=== PATIENT | female | born 1945 | race Caucasian/White ===

== ENCOUNTER → 2017-07-04 | Day surgery (SDC) | payer MEDICARE ==
--- NOTE | 2017-07-01 12:51 | Diagnostic Imaging Report ---
PROCEDURE:CHEST 2 VIEWS TECHNIQUE:PA and lateral INDICATION:Preoperative evaluation for foot surgery COMPARISON:None. FINDINGS: The lungs are clear and symmetrically inflated. No pleural effusions. 0.7 cm right midlung pulmonary nodule. No pleural effusions. Normal heart size. Abdominal aortic atherosclerosis. CONCLUSION: 1. No acute abnormality. 2. 0.7 cm right midlung noncalcified pulmonary nodule. Consider low dose nodule CT chest for screening. Dictated by: Eddie Trimble M.D. on 07/01/2017 at 12:53 Electronically approved by: Eddie Trimble M.D. on 07/01/2017 at 12:53
[~2017-07-04] MED LIST: AMLODIPINE BESY10 MG PO; ARYTHROMYCIN; ASPIRIN ENTERI325 MG PO; B COMPLEX WITH1 EACH PO; BUPIVACAINE HCL 0.5% INJ 30 ML VIAL INJ ONE; CALCIUM 600 +1 EAC8 PO; CEFAZOLIN SOD 2 GM/D5W 50ML 50 ML IV ONE; DEXAMETHASONE SOD PHOS INJ 4 MG/ML VIAL ONE; FENTANYL CITRATE/PF 100MCG/2 ML INJ ONE; FOSAMAX70 MG PO; LIDOCAINE HCL 2% LOCAL INJ 5 ML SDV VIAL INJ ONE; LIPITOR10 MG PO; LISINOPRIL10 MG PO; LORATADINE10 MG PO; METHIMAZOLE10 MG PO; METOPROLOL TART50 MG PO; MULTIVITAMINS1 EAC7 PO; NEOSTIGMINE 1 MG/ML 10ML VIAL ONE; ONDANSETRON HCL INJ 2 MG/ML VIAL ONE; PROPOFOL IV EMULSION 10 MG/ML 20 ML VIAL ONE; SEVOFLURANE INHAL SOLN 250 ML PEN BTL ONE; VITAMIN C500 MG PO; VITAMIN D35000 UNI1 PO
--- OUTSIDE RECORDS SUMMARY | 2017-07-04 05:24 | XMS REPORT ---
Author Author [facility] Address Unknown Phone Unavailable Care Team Providers Care Machine Rigger Name Role Phone MAIKOL LOPEZ Unavailable Unavailable Problems This patient has no known problems. Allergies, Adverse Reactions, Alerts This patient has no known allergies or adverse reactions. Medications This patient has no known medications. Results Test Description Test Time Test Comments Text Results Atomic Results Result Comments CHEST 2 VIEWS [place] [address] Patient Name: AMA TRUJILLO MR #: [id number] : 1945 Age/Sex: 72/F Req # : [id number] Adm Physician: Ordered by: MAIKOL LOPEZ DPM Report #: [id number] Location: OR Room/Bed: Procedure: [id number] DX/CHEST 2 VIEWS Exam Date: 07/01/17 Exam Time: 1220 REPORT STATUS: Signed PROCEDURE: CHEST 2 VIEWS TECHNIQUE: PA and lateral INDICATION: Preoperative evaluation for foot surgery COMPARISON: None. FINDINGS: The lungs are clear and symmetrically inflated. No pleural effusions. 0.7 cm right midlung pulmonary nodule. No pleural effusions. Normal heart size. Abdominal aortic atherosclerosis. CONCLUSION: 1. No acute abnormality. 2. 0.7 cm right midlung noncalcified pulmonary nodule. Consider low dose nodule CT chest for screening. Dictated by: Elvis Trimble M.D. on 07/01/2017 at 12:53 Electronically approved by: Elvis Trimble M.D. on 07/01/2017 at 12:53 Dictated By: ELVIS TRIMBLE MD 1253 Transcribed By: TJ on 1253 COPY TO: MAIKOL LOPEZ DPM
[2017-07-04 06:45] LABS: BASOPHILS # (AUTO) 0.1 (0.0-0.1); BASOPHILS % 0.7 % (0.0-1.0); EOSINOPHILS # (AUTO) 0.2 (0.0-0.4); EOSINOPHILS % 2.2 % (0.0-6.0); HEMOGLOBIN 13.2 g/dL (12.0-16.0); LYMPHOCYTES % 29.6 % (18.0-39.1); MEAN CORPUSCULAR HEMOGLOBIN 31.4 pg (28-32); MEAN CORPUSCULAR HGB CONC 33.8 g/dL (31-35); MEAN CORPUSCULAR VOLUME 92.6 fL (81-99); MONOCYTES # (AUTO) 0.7 (0.2-0.8); MONOCYTES % 6.8 % (4.4-11.3); NEUTROPHILS # (AUTO) 6.1 (2.1-6.9); NEUTROPHILS % 60.4 % (38.7-80.0); PLATELET COUNT 219 x10e3/uL (140-360); RED BLOOD COUNT 4.21 x10e6/uL (3.6-5.1); RED CELL DISTRIBUTION WIDTH 14.4 % (11.7-14.4)
[2017-07-04 07:02] LABS: ANION GAP 14.8 mmol/L (8-16); BLOOD UREA NITROGEN 15 mg/dL (7-26); BUN/CREATININE RATIO 20 (6-25); CALCIUM 9.6 mg/dL (8.4-10.2); CARBON DIOXIDE 22 mmol/L (22-29); CHLORIDE 112 mmol/L (98-107); CREATININE, SERUM 0.74 mg/dL (0.57-1.11); EST GLOMERULAR FILTRATION RATE > 60 ML/MIN (60-); GLUCOSE 115 mg/dL (74-118); POTASSIUM 3.8 mmol/L (3.5-5.1); SODIUM 145 mmol/L (136-145)
--- NOTE | 2017-07-04 14:49 | Operative Report ---
DATE OF PROCEDURE: July 04, 2017 PREOPERATIVE DIAGNOSES 1. Hammertoe, hallux, right foot. 2. Hammertoe, 2nd digit, right foot. POSTOPERATIVE DIAGNOSES 1. Hammertoe, hallux, right foot. 2. Hammertoe, 2nd digit, right foot. TITLE OF OPERATION 1. Arthroplasty, hallux, right foot. 2. Arthroplasty, 2nd digit, right foot. ANESTHESIA: General endotracheal. HEMOSTASIS: A right thigh tourniquet at 350 mmHg. PROCEDURE IN DETAIL: The patient was taken to the operating room in a mildly sedated state and placed upon the operating table in the supine position. Following induction of general anesthetic, the right lower extremity was elevated to 60 degrees to exsanguinate before inflating the pneumatic thigh tourniquet to 350 mmHg to create hemostasis. The right lower extremity was placed on the operating room table prior to performing the following procedures: Procedure #1: Arthroplasty of the right hallux. A linear longitudinal incision was made overlying the dorsal lateral aspect of the right interphalangeal joint of the hallux. Incision was deepened via sharp and blunt dissection down to the level of the dorsal capsular structure. Care was taken to identify and retract all vital structures encountered. The head of the 1st proximal phalanx was delivered in the surgical site and the base of the distal phalanx as well. Utilizing an oscillating saw, a longitudinal bone cut was made in order to remove the lateral aspect of the interphalangeal joint, which had been quite prominent. This having been removed, the area was rasped smooth and irrigated with copious amounts of sterile saline solution under fluoroscopy. The bone was checked. Adequate positioning was noted. Deep closure was 3-0 Vicryl and skin closure 4-0 nylon. Attention was then directed to the interphalangeal joint at the abutting 2nd digit of the right foot. A linear longitudinal incision was made across the dorsal medial aspect of the 2nd digit of the right foot. Incision was deepened via sharp and blunt dissection down to the level of the bony prominence. The digit was crooked laterally and, with removal of bone from the proximal phalanx as well as the intermediate phalanx, the prominence was removed, and the digit was able to be realigned slightly. The area was irrigated with copious amounts of sterile saline solution. Deep closure was 3-0 Vicryl and skin closure 4-0 nylon. The areas of surgery were then blocked with 0.5 Marcaine and Decadron [place]. Release of the pneumatic thigh tourniquet showed a normal hyperemic flush to all digits of the right foot. The patient left the operating room with vital signs stable and in apparent satisfactory condition, having tolerated both anesthetic and procedure very well. Job#: [id number]
== END | disposition home or self-care (01) ==
LOC: OR 05:22
PROVIDERS: ATTEND Podiatrist Foot Surgery
DX: M20.41 Other hammer toe(s) (acquired), right foot (principal); I10 Essential (primary) hypertension; F17.200 Nicotine dependence, unspecified, uncomplicated; I49.1 Atrial premature depolarization; I34.1 Nonrheumatic mitral (valve) prolapse; E05.00 Thyrotoxicosis with diffuse goiter without thyrotoxic crisis or storm; F32.9 Major depressive disorder, single episode, unspecified; Z88.1 Allergy status to other antibiotic agents; Z88.2 Allergy status to sulfonamides; Z88.8 Allergy status to other drugs, medicaments and biological substances; Z01.810 Encounter for preprocedural cardiovascular examination; Z01.812 Encounter for preprocedural laboratory examination; Z01.818 Encounter for other preprocedural examination; Z79.82 Long term (current) use of aspirin; Z86.73 Personal history of transient ischemic attack (TIA), and cerebral infarction without residual deficits; Z85.828 Personal history of other malignant neoplasm of skin
CPT/HCPCS: 28285 ×2; 36415; 71046; 80048; 85025; 93005; J1100; J2001; J2405; J2710; 76000